=== PATIENT | male | born 2000 ===

== ENCOUNTER 2025-02-07 16:20 | Inpatient (IN) | payer MEDICAID, SELFPAY ==
[2025-02-07 17:03] VITALS: BMI 29.6
[2025-02-07 17:41] VITALS: BP 140/98; PULSE 96; RESP 18; TEMP 36.6; O2SAT 98
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
[2025-02-07 20:00] VITALS: BP 132/79; PULSE 97; RESP 15; TEMP 36.9; O2SAT 100
[2025-02-07] MEDS: OLANZapine 5 MG TABLET PO (20:01)
[2025-02-07] MEDS: traZODone HCL 50 MG TABLET PO ×2 (20:02→23:26)
[2025-02-07] MEDS: hydrOXYzine HCL 25 MG TABLET PO (23:26)
[2025-02-08] MEDS: OLANZapine 5 MG TABLET PO ×5 (01:11→22:05)
[2025-02-08] MEDS: hydrOXYzine HCL 25 MG TABLET PO ×3 (05:06→17:19)
[2025-02-08] MEDS: Magnesium Hydrox/Alum Hydrox 30 ML ORAL.SUSP PO (05:53)
[2025-02-08 08:00] VITALS: BP 130/83; PULSE 85; RESP 16; TEMP 36.4; O2SAT 99
[2025-02-08 08:15] LABS: Cholesterol 124 mg/dL (<200); HDL Cholesterol 55 mg/dL (>40); LDL Cholesterol Calculated 52 mg/dL (<100); Triglycerides 87 mg/dL (<150)
[2025-02-08 08:20] LABS: Estimated Average Glucose 100 mg/dL; Hemoglobin A1C 128.2503 umol/L; Hemoglobin A1c % 5.1 % (<6.0); Total Hemoglobin (HGBA1C) 4001.1925 umol/L
[2025-02-08 08:28] LABS: Free T4 (Free Thyroxine) 1.13 ng/dL (0.71-1.85); Thyroid Stimulating Hormone 1.72 uIU/mL (0.32-4.0)
[2025-02-08] MEDS: Nicotine 7 MG PATCH.TD24 TRANSDERMA (08:35)
[2025-02-08] MEDS: Nicotine Polacrilex Lozenge 2 MG LOZENGE BUCCAL (08:35)
[2025-02-08 08:43] LABS: Folate 9.7 ng/mL (> or = 4.0); Vitamin B12 315 pg/mL (200-900)
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
--- NOTE | 2025-02-08 09:53 | P.CONHOSP_ITS ---
History of Present Illness Data of Consult Service Date: 02/08/25 Requesting physician: Timmy Rodriguez Primary Care Provider: Unknown Physician HPI Reason for consult: medical H&P 24-year-old male with past medical history of attention deficit disorder who is a current 2 cigarette per day smoker admitted to adult Psychiatry with consult placed hospitalist service for medical H&P. The patient has been sent to [facility] on section 12 after not sleeping for several days and taking an unknown amount of Adderall which is prescribed him. He was monitored in the ED. EKG x2 showed sinus tachycardia, highest heart rate 104 with nonspecific T-wave abnormality. No arrhythmias noted. Vital signs otherwise within normal limits. Hematology studies revealed a mild leukocytosis of 11.4. Renal function normal, electrolyte levels normal except for a mild hypokalemia of 3.4. TSH 0.52. Ethyl alcohol level undetectable. No imaging performed. UTox not performed. The patient does endorse marijuana use but denies any other drug use. He states he does consume alcohol on an occasional basis. At this time he has no complaints and reports he is feeling well. Review of Systems Review of Systems: General: No fevers, malaise, unintentional weight loss HEENT: No blurred vision, diplopia. No sore throat, nasal congestion, rhinorrhea, sinus pain, ear pain Cardiovascular: No chest pain, palpitations, or leg edema Respiratory: No shortness of breath, wheezing, cough GI: No abdominal pain, nausea, vomiting, diarrhea, constipation, melena, hematochezia : No dysuria, hematuria, increased urinary frequency, decreased urinary output MSK: No myalgia, back pain Neuro: No headaches, weakness, paresthesias Skin: No rashes or lesions [facility] Medical History ADHD Social History Household Members: Family Housing: House Do you presently have visiting nurse or other home services: No Patient Tobacco Use Status: Current everyday Tobacco user Tobacco use type: Cigarette Cigarette Packs Per Day: 0.25 Cigarettes Per Day: 5.0 Smoked in Last 30 Days: Yes Patient Interested in Nicotine Replacement: Yes Patient Given Instructions on How to Stop Smoking: Yes (refused) Date Education Initiated: 03/30/25 Second Hand Smoke Exposure: Yes Use of substances other than those prescribed or required for medical reasons: Yes Substance Use Type: Marijuana Substance Use Frequency: Chronic Longstanding Last Used Substance: Days (ago) Currently Displaying Signs/Symptoms of Drug Intoxication Withdrawal: No Any prior treatment program specific to substance use: No Have you been hit, kicked, punched, or otherwise hurt by someone within the past year? If so, by whom?: No Do you feel safe in your current relationship?: No Current Relationship Is there a partner from a previous relationship who is making you feel unsafe now?: No Are you made to feel afraid or neglected: No Spiritual Healthcare Practices: None Pentecostal Healthcare Practices: None Cultural Healthcare Practices: None Advance Directives: No Advance Directives Information Provided: No Do you have thoughts of harming others: None Do you have a plan to hurt others: No Plan Recently lost weight without trying: No How much weight loss: Not applicable Eating poorly because of decreased appetite: No Nutrition screen score: 0 Nutrition Risks: No Nutritional Risk Poor oral hygiene: No Meds Allergies Allergy/AdvReac Type Severity Reaction Status Date / Time No Known Allergies Allergy Verified 02/07/25 17:01 Active Medications: Current Medications Acetaminophen (Acetaminophen 325 Mg Tablet) 650 mg PO Q6H PRN PRN Reason: Headache/Pain, Scale 1-10 Al Hydroxide/Mg Hydroxide (Magnesium Hydrox/Alum Hydrox 30 Ml Oral.Susp) 30 ml PO Q6H PRN PRN Reason: Heartburn/Nausea Last Admin: 02/08/25 05:53 Dose: 30 ml Hydroxyzine HCl (Hydroxyzine Hcl 25 Mg Tablet) 25 mg PO Q6H PRN PRN Reason: mild anxiety Last Admin: 02/08/25 05:06 Dose: 25 mg Magnesium Hydroxide (Milk Of Magnesia 30 Ml Oral.Susp) 30 ml PO DAILY PRN PRN Reason: Constipation Nicotine (Nicotine 7 Mg Patch.Td24) 7 mg TRANSDERMA DAILY ELIZABETH Last Admin: 02/08/25 08:35 Dose: 7 mg Nicotine Polacrilex (Nicotine Polacrilex Lozenge 2 Mg Lozenge) 2 mg BUCCAL Q1H PRN PRN Reason: Nicotine Cravings Last Admin: 02/08/25 08:35 Dose: 2 mg Olanzapine (Olanzapine 5 Mg Tablet) 5 mg PO BEDTIME ELIZABETH Last Admin: 02/07/25 20:01 Dose: 5 mg Olanzapine (Olanzapine 5 Mg Tablet) 5 mg PO Q4H PRN PRN Reason: agitation Last Admin: 02/08/25 08:36 Dose: 5 mg Trazodone HCl (Trazodone Hcl 50 Mg Tablet) 50 mg PO BEDTIME MRX1 PRN PRN Reason: Insomnia Last Admin: 02/07/25 23:26 Dose: 50 mg Home Medications ?Medication ?Instructions ?Recorded ?Confirmed ?Last Taken ?Type dextroamphetamine-amphetamine ER 1 cap PO QAM 02/07/25 02/07/25 2 Days Ago History 20 mg 24hr capsule,extend release ~02/05/25 Physical Exam Vital Signs and Narrative: Vital Signs: Last Vital Signs Temp 98.5 F 02/07/25 20:00 Pulse 97 02/07/25 20:00 Resp 15 02/07/25 20:00 BP 132/79 02/07/25 20:00 Pulse Ox 100 02/07/25 20:00 O2 Del Method Room Air 02/07/25 17:41 BMI result Body Mass Index 29.6 Constitutional - Awake and Alert, No apparent distress Eyes - PERRLA, EOMI Cardiovascular - S1S2, RRR, No edema Respiratory - Normal lung expansion, Normal respiratory effort, No respiratory distress, CTA bilaterally Gastrointestinal - NT / ND; +BS; No rebound or guarding Extremities - no calf tenderness bilaterally, no swelling Musculoskeletal - Normal inspection, normal ROM Skin - Warm/Dry Neurological - Alert & oriented x3, CN II-XII in tact, 5/5 strength BUE and BLE, sensation in tact Results Labs Labs: Laboratory Results - last 24 hr 02/08/25 07:41 Estimat Average Glucose 100 Hemoglobin A1c % 5.1 Triglycerides 87 Cholesterol 124 LDL Cholesterol, Calc 52 HDL Cholesterol 55 Vitamin B12 315 Folate 9.7 TSH 1.72 Free T4 1.13 Assessment and Plan (1) Routine medical exam: Status: Acute Plan 24-year-old male with past medical history of attention deficit disorder who is a current 2 cigarette per day smoker admitted to adult Psychiatry with consult placed hospitalist service for medical H&P. ADHD/Bipolar disorder plan per psychiatry [facility] chart reviewed. Pt reportedly took an unknown amount of adderal. EKG's showed sinus tach, max HR 104. VItals otherwise stable. CPK not obtained but renal function normal. Vitals stable this morning Cigarette smoking cessation advised [facility] reviewed including labs, EKG, provider report. Admission labs reviewed and are WNL Thank you for allowing me to participate in this consult. Signing off at this time. Please do not hesitate to call for further questions or for any acute medical issues.
[2025-02-08 20:00] VITALS: BP 128/83; PULSE 98; RESP 16; TEMP 36.3; O2SAT 93
[2025-02-08] MEDS: traZODone HCL 100 MG TABLET PO (22:04)
[2025-02-08 22:05] VITALS: BP 122/78
[2025-02-08] MEDS: cloNIDine HCL 0.1 MG TABLET PO (22:05)
[2025-02-08] MEDS: OLANZapine 10 MG TABLET PO (22:06)
[2025-02-09 06:59] VITALS: BP 124/79
[2025-02-09] MEDS: cloNIDine HCL 0.1 MG TABLET PO ×2 (06:59→20:41)
[2025-02-09 07:55] LABS: Amphetamine Screen Urine Not Detected (Not Detect); Barbiturates, Urine Not Detected (Not Detect); Benzodiazepines Screen Urine Not Detected (Not Detect); Buprenorphine Scr Not Detected (Not Detect); Cannabinoid Screen Urine POSITIVE (Not Detect); Cocaine Screen Urine Not Detected (Not Detect); Fentanyl, urine Not Detected (Not Detect); Methadone Screen, Urine Not Detected (Not Detect); Opiate Screen Urine Not Detected (Not Detect); Oxycodone Screen Urine Not Detected (Not Detect); Phencyclidine Screen Urine Not Detected (Not Detect)
[2025-02-09 07:58] VITALS: BP 125/68; PULSE 90; TEMP 36.4; O2SAT 99
[2025-02-09] MEDS: Nicotine 7 MG PATCH.TD24 TRANSDERMA (08:15)
[2025-02-09] MEDS: Clotrimazole 1 % Cream 15 GM TUBE 1 APPL TOPICAL ×2 (08:16→20:42)
[2025-02-09] MEDS: hydrOXYzine HCL 25 MG TABLET PO ×2 (09:05→14:38)
[2025-02-09] MEDS: OLANZapine 5 MG TABLET PO ×2 (09:05→14:38)
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
[2025-02-09] MEDS: Milk of Magnesia 30 ML ORAL.SUSP PO (12:22)
[2025-02-09 20:00] VITALS: BP 123/79; PULSE 107; TEMP 36.4; O2SAT 99
[2025-02-09 20:41] VITALS: BP 123/79
[2025-02-09] MEDS: OLANZapine 10 MG TABLET PO (20:41)
[2025-02-09] MEDS: traZODone HCL 100 MG TABLET PO (20:42)
[2025-02-10] MEDS: Magnesium Hydrox/Alum Hydrox 30 ML ORAL.SUSP PO (01:35)
[2025-02-10] MEDS: OLANZapine 5 MG TABLET PO (01:35)
[2025-02-10] MEDS: Nicotine 7 MG PATCH.TD24 TRANSDERMA (08:21)
[2025-02-10] MEDS: Clotrimazole 1 % Cream 15 GM TUBE 1 APPL TOPICAL (08:22)
[2025-02-10 08:24] VITALS: BP 134/86; PULSE 98; RESP 18; TEMP 36.4; O2SAT 100
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
[2025-02-10 14:18] VITALS: BP 123/73
[2025-02-10] MEDS: cloNIDine HCL 0.1 MG TABLET 0.05 MG PO (14:18)
[2025-02-10] MEDS: Nicotine Polacrilex Lozenge 2 MG LOZENGE BUCCAL ×2 (16:25→18:13)
[2025-02-10 19:48] VITALS: BP 131/70; PULSE 96; RESP 16; TEMP 36.3; O2SAT 98
[2025-02-10] MEDS: OLANZapine 10 MG TABLET PO (21:02)
[2025-02-10] MEDS: cloNIDine HCL 0.1 MG TABLET PO (21:03)
[2025-02-10] MEDS: traZODone HCL 100 MG TABLET PO (21:03)
[2025-02-11 01:20] VITALS: BP 122/72
[2025-02-11] MEDS: cloNIDine HCL 0.1 MG TABLET 0.05 MG PO ×3 (01:20→19:53)
--- NOTE | 2025-02-11 06:49 | PC.NURSE ---
Coleman woke up at 0415 and started pacing the hallway complaining about the unit is so dirty, I've about lost my patience with all of this . Patient refused any prns and stated I'm all set . He finally went back to his room at 0500 and went to sleep.
[2025-02-11 07:00] VITALS: BMI 30.2
[2025-02-11] MEDS: OLANZapine 5 MG TABLET PO ×3 (07:30→21:24)
[2025-02-11 08:00] VITALS: BP 130/67; PULSE 91; TEMP 36.4; O2SAT 100
[2025-02-11] MEDS: Nicotine 7 MG PATCH.TD24 TRANSDERMA (08:12)
[2025-02-11] MEDS: Clotrimazole 1 % Cream 15 GM TUBE 1 APPL TOPICAL (08:14)
[2025-02-11] MEDS: hydrOXYzine HCL 25 MG TABLET PO (09:24)
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
[2025-02-11 13:35] VITALS: BP 102/67
[2025-02-11 19:53] VITALS: BP 119/74
[2025-02-11 20:00] VITALS: BP 119/74; PULSE 109; RESP 16; TEMP 36.4; O2SAT 100
[2025-02-11 21:20] VITALS: BP 117/99
[2025-02-11] MEDS: OLANZapine 10 MG TABLET PO (21:20)
[2025-02-11] MEDS: cloNIDine HCL 0.1 MG TABLET PO (21:20)
[2025-02-11] MEDS: Nicotine Polacrilex Lozenge 2 MG LOZENGE BUCCAL (21:20)
[2025-02-11] MEDS: traZODone HCL 100 MG TABLET PO (21:21)
[2025-02-12] MEDS: traZODone HCL 100 MG TABLET PO ×2 (01:23→21:17)
[2025-02-12 06:19] VITALS: BP 125/74
[2025-02-12] MEDS: cloNIDine HCL 0.1 MG TABLET 0.05 MG PO (06:19)
[2025-02-12] MEDS: Clotrimazole 1 % Cream 15 GM TUBE 1 APPL TOPICAL (06:24)
[2025-02-12 08:00] VITALS: BP 130/60; PULSE 98; TEMP 36.8; O2SAT 99
[2025-02-12] MEDS: Nicotine 7 MG PATCH.TD24 TRANSDERMA (08:43)
[2025-02-12] MEDS: OLANZapine 5 MG TABLET PO ×2 (10:00→14:47)
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
[2025-02-12] MEDS: hydrOXYzine HCL 25 MG TABLET PO ×2 (16:32→23:54)
[2025-02-12 20:00] VITALS: BP 117/68; PULSE 97; RESP 16; TEMP 36.4; O2SAT 98
[2025-02-12] MEDS: metFORMIN HCl ER 500 MG TAB.ER.24H PO (21:17)
[2025-02-12] MEDS: OLANZapine 10 MG TABLET PO (21:17)
[2025-02-12] MEDS: cloNIDine HCL 0.1 MG TABLET PO (21:18)
[2025-02-13 03:01] VITALS: BP 115/74
[2025-02-13] MEDS: cloNIDine HCL 0.1 MG TABLET PO ×2 (03:01→20:25)
[2025-02-13] MEDS: OLANZapine 5 MG TABLET PO (03:01)
[2025-02-13 06:53] VITALS: BP 125/73
[2025-02-13] MEDS: cloNIDine HCL 0.1 MG TABLET 0.05 MG PO ×2 (06:53→14:36)
[2025-02-13 07:58] VITALS: BP 118/67; PULSE 95; TEMP 36.3; O2SAT 98
[2025-02-13] MEDS: Dextroamphetamine/Amphetamine XR 10 MG CAP.ER.24H 20 MG PO (08:07)
[2025-02-13] MEDS: Nicotine 7 MG PATCH.TD24 TRANSDERMA (08:45)
[2025-02-13 09:00] LABS: Creatinine Clr Calc Pharmacy 140.5; Estimated Glomerular Filt Rate > 60
[2025-02-13] MEDS: Nicotine Polacrilex Lozenge 2 MG LOZENGE BUCCAL ×3 (09:09→21:34)
[2025-02-13] MEDS: Clotrimazole 1 % Cream 15 GM TUBE 1 APPL TOPICAL (09:09)
[2025-02-13] MEDS: hydrOXYzine HCL 25 MG TABLET PO ×2 (10:50→18:05)
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
[2025-02-13 14:36] VITALS: BP 130/76
[2025-02-13 20:00] VITALS: BP 135/85; PULSE 100; RESP 16; TEMP 36.6; O2SAT 98
[2025-02-13] MEDS: metFORMIN HCl ER 500 MG TAB.ER.24H PO (20:24)
[2025-02-13] MEDS: traZODone HCL 100 MG TABLET PO (20:25)
[2025-02-13] MEDS: OLANZapine 10 MG TABLET PO (20:25)
[2025-02-14] MEDS: hydrOXYzine HCL 25 MG TABLET PO ×2 (04:36→16:17)
[2025-02-14] MEDS: Dextroamphetamine/Amphetamine XR 10 MG CAP.ER.24H 20 MG PO (07:53)
[2025-02-14] MEDS: Nicotine 7 MG PATCH.TD24 TRANSDERMA (07:53)
[2025-02-14 07:58] VITALS: BP 125/79; PULSE 115; TEMP 36.3; O2SAT 98
[2025-02-14 09:15] VITALS: BP 143/89
[2025-02-14] MEDS: cloNIDine HCL 0.1 MG TABLET 0.05 MG PO ×3 (09:15→18:47)
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
[2025-02-14 14:10] VITALS: BP 117/72
[2025-02-14 18:47] VITALS: BP 118/89
[2025-02-14 20:00] VITALS: BP 118/59; PULSE 117; RESP 16; TEMP 36.6; O2SAT 99
[2025-02-14 22:10] VITALS: BP 114/60
[2025-02-14] MEDS: OLANZapine 10 MG TABLET PO (22:10)
[2025-02-14] MEDS: cloNIDine HCL 0.1 MG TABLET PO (22:10)
[2025-02-14] MEDS: traZODone HCL 100 MG TABLET PO (22:10)
[2025-02-14] MEDS: metFORMIN HCl ER 500 MG TAB.ER.24H PO (22:11)
[2025-02-15 06:56] VITALS: BP 124/70
[2025-02-15] MEDS: cloNIDine HCL 0.1 MG TABLET 0.05 MG PO ×3 (06:56→17:11)
[2025-02-15] MEDS: Clotrimazole 1 % Cream 15 GM TUBE 1 APPL TOPICAL ×2 (07:00→22:04)
[2025-02-15 07:03] VITALS: BP 124/70; PULSE 102; RESP 16; TEMP 36.6; O2SAT 99
[2025-02-15] MEDS: Nicotine 7 MG PATCH.TD24 TRANSDERMA (08:08)
[2025-02-15] MEDS: Dextroamphetamine/Amphetamine XR 10 MG CAP.ER.24H 20 MG PO (08:08)
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
[2025-02-15 12:41] VITALS: BP 131/80
[2025-02-15] MEDS: OLANZapine 5 MG TABLET PO (14:35)
[2025-02-15 17:11] VITALS: BP 125/68
[2025-02-15] MEDS: hydrOXYzine HCL 25 MG TABLET PO (19:38)
[2025-02-15 21:54] VITALS: BP 137/77; PULSE 108; RESP 16; TEMP 36.9; O2SAT 98
[2025-02-15] MEDS: metFORMIN HCl ER 500 MG TAB.ER.24H PO (21:56)
[2025-02-15] MEDS: OLANZapine 10 MG TABLET PO (21:56)
[2025-02-15] MEDS: cloNIDine HCL 0.1 MG TABLET PO (21:57)
[2025-02-15] MEDS: traZODone HCL 100 MG TABLET PO (21:57)
[2025-02-16 06:33] VITALS: BP 126/71; PULSE 96
[2025-02-16] MEDS: cloNIDine HCL 0.1 MG TABLET 0.05 MG PO (06:34)
[2025-02-16 08:02] VITALS: BP 117/77; PULSE 94; TEMP 36.4; O2SAT 98
[2025-02-16] MEDS: Nicotine 7 MG PATCH.TD24 TRANSDERMA (08:10)
[2025-02-16] MEDS: Dextroamphetamine/Amphetamine XR 10 MG CAP.ER.24H 20 MG PO (08:11)
[2025-02-16] MEDS: Clotrimazole 1 % Cream 15 GM TUBE 1 APPL TOPICAL (08:48)
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
[2025-02-16] MEDS: Naloxone HCl Nasal TAKE HOME 4 MG SPRAY 8 MG NOSTRILALT (09:32)
[2025-02-16] MEDS: hydrOXYzine HCL 25 MG TABLET PO (10:34)
== END 2025-02-16 11:00 | disposition home or self-care (01) | DRG 753 ==
PROVIDERS: Psychiatry & Neurology Psychiatry; Admitting Provider Psychiatry & Neurology Psychiatry; Visit Provider Psychiatry & Neurology Psychiatry
DX: F31.9 Bipolar disorder, unspecified (principal); F15.10 Other stimulant abuse, uncomplicated; F17.210 Nicotine dependence, cigarettes, uncomplicated; F90.9 Attention-deficit hyperactivity disorder, unspecified type; Z71.6 Tobacco abuse counseling; Z79.84 Long term (current) use of oral hypoglycemic drugs; Z79.899 Other long term (current) drug therapy
CPT/HCPCS: 36415; 80061; 80307; 82565; 82607; 82746; 83036; 84439; 84443

== ENCOUNTER → 2025-02-07 16:20 | Outpatient (BNV) | payer MEDICAID, SELFPAY | PROVIDERS: Admitting Provider Psychiatry & Neurology Psychiatry; Visit Provider Physician Assistant | DX: Z00.8 Encounter for other general examination (principal) | CPT/HCPCS: 99429 ==

== ENCOUNTER → 2025-02-07 16:20 | Outpatient (BNV) | payer MEDICAID, SELFPAY | PROVIDERS: Admitting Provider Psychiatry & Neurology Psychiatry; Visit Provider Psychiatry & Neurology Psychiatry | DX: F31.13 Bipolar disorder, current episode manic without psychotic features, severe (principal); F15.10 Other stimulant abuse, uncomplicated | CPT/HCPCS: 90792; 99231; 99232; 99239 ==